=== PATIENT | male | born 1970 | race African-American/Black ===

== ENCOUNTER → 2017-10-11 | Outpatient (CLI) | payer MEDICAID | END | disposition home or self-care (01) | LOC: CVU 09:55 | PROVIDERS: ATTEND Internal Medicine Cardiovascular Disease | DX: I42.9 Cardiomyopathy, unspecified (principal); I50.9 Heart failure, unspecified; J44.9 Chronic obstructive pulmonary disease, unspecified; E66.01 Morbid (severe) obesity due to excess calories; Z95.0 Presence of cardiac pacemaker | CPT/HCPCS: 0399T; 93306 ==

== ENCOUNTER 2018-07-20 12:57 | Emergency (ER) | payer MEDICAID ==
[~2018-07-20] VITALS: Ht 180.3 cm; Wt 174.3 kg
[2018-07-20 14:39] LABS: BASOPHILS # (AUTO) 0.05 x10^3/uL (0-0.1); BASOPHILS % (AUTO) 1 % (0-1); EOSINOPHILS # (AUTO) 0.14 x10^3/uL (0-0.4); EOSINOPHILS % (AUTO) 1 % (1-7); LYMPHOCYTES # (AUTO) 2.55 x10^3/uL (1-3.4); LYMPHOCYTES % (AUTO) 24 % (22-44); MD NO; MEAN CORPUSCULAR HEMOGLOBIN 28.4 pg (27.5-34.5); MEAN CORPUSCULAR HGB CONC 32.7 g/dL (33.2-36.2); MEAN CORPUSCULAR VOLUME 86.8 fL (81-97); MEAN PLATELET VOLUME 8.3 fL (7.4-10.4); MONOCYTES # (AUTO) 0.68 x10^3/uL (0.2-0.8); MONOCYTES % (AUTO) 6 % (2-9); NEUTROPHILS # (AUTO) 7.11 x10^3/uL (1.8-6.8); NEUTROPHILS % (AUTO) 68 % (42-75); PLATELET COUNT 280 x10^3/uL (130-400); RED BLOOD COUNT 5.16 x10^6/uL (4.38-5.82); RED CELL DISTRIBUTION WIDTH 14.9 % (9.4-14.8)
[2018-07-20 14:40] LABS: ALBUMIN 3.6 g/dL (3.4-5.0); ANION GAP 3 mmol/L (5-15); CALCIUM 8.8 mg/dL (8.5-10.1); CHLORIDE 106 mmol/L (98-107)
[2018-07-20 14:46] LABS: ALANINE AMINOTRANSFERASE 34 U/L (12-78); ALKALINE PHOSPHATASE 84 U/L (45-117); BILIRUBIN,TOTAL 0.5 mg/dL (0.2-1.0); CREATININE 1.41 mg/dL (0.7-1.3); TOTAL PROTEIN 8.5 g/dL (6.4-8.2); TROPONIN I < 0.015 ng/mL (0.000-0.045)
--- NOTE | 2018-07-20 15:36 | NUR ---
TO ROOM 02
[2018-07-20 16:12] LABS: CULTURE INDICATED? YES; MICROSCOPIC INDICATED
[2018-07-20] MEDS ORDERED: SODIUM CHLORIDE 0.9% 1,000ML IVBOLUS ONE (16:30)
[2018-07-20] MEDS ORDERED: ONDANSETRON 2MG/ML, 2ML IVPush ONE (16:30)
[2018-07-20] MEDS ORDERED: SODIUM CHLORIDE FLUSH 10ML SYR IVF ONE (16:30)
[2018-07-20] MEDS ORDERED: FAMOTIDINE 20 MG/2 ML IVP ONE (16:30)
[2018-07-20] MEDS ORDERED: FAMOTIDINE 20 MG/2 ML ONE (16:32)
[2018-07-20] MEDS ORDERED: ONDANSETRON 2MG/ML, 2ML ONE (16:32)
[2018-07-20] MEDS ORDERED: FAMOTIDINE 20 MG TABLET ONE (17:31)
[2018-07-20] MEDS ORDERED: ONDANSETRON ODT 4 MG ONE ×2 (17:31→17:34)
--- NOTE | 2018-07-20 18:01 | NUR ---
UNABLE TO ESTABLISH IV ACCESS. MD AWARE. VERBAL ORDER FOR 4 MG ODT ZOFRAN AND PEPCID 20 MG PO. PO FLUIDS AFTER ODT.
[2018-07-20] MEDS ORDERED: FAMOTIDINE 20 MG TABLET PO ONE (18:30)
[2018-07-20] MEDS ORDERED: ONDANSETRON ODT 4 MG PO ONE (18:30)
--- NOTE | 2018-07-20 18:45 | NUR ---
PT TOLERATING PO FLUIDS.
--- NOTE | 2018-07-20 19:02 | NUR ---
REPORT RECEIVED FROM ANA PAULA CEBALLOS.
--- NOTE | 2018-07-20 19:08 | NUR ---
PT HANDOFF REPORT TO SHUBHAM CEBALLOS
--- NOTE | 2018-07-20 19:50 | NUR ---
NO VOMITING / DRY HEAVING NOTED.
--- NOTE | 2018-07-20 19:58 | NUR ---
EDMD AT BEDSIDE TO EXPLAIN ALL RESULTS. AWAITING DC AT THIS TIME.
--- NOTE | 2018-07-20 20:21 | NUR ---
PT AMB TO BR AND BACK TO ROOM WITH STEADY GAIT.
[2018-07-20 20:54] VITALS: BP 178/109
--- NOTE | 2018-07-20 21:02 | NUR ---
PT GIVEN DC INSTRUCTIONS AND SCRIPT. PT EDUCATED REGARDING DC MEDICATION. PT AMB TO DC WITH STEADY GAIT. PT'S AOX4. RESPS EVEN AND UNLABORED. NO ACUTE DISTRESS AT DC.
== END 2018-07-20 20:56 | disposition home or self-care (01) ==
LOC: ED 15:45
DX: R11.2 Nausea with vomiting, unspecified (principal); R10.84 Generalized abdominal pain; I10 Essential (primary) hypertension; E78.5 Hyperlipidemia, unspecified; E78.00 Pure hypercholesterolemia, unspecified
CPT/HCPCS: 36415; 71045; 74021; 80053; 81001; 83690; 84484; 85025; 87086; 93005; 99284; Q0162

== ENCOUNTER → 2019-12-04 | Outpatient (CLI) | payer MEDICAID | END | disposition home or self-care (01) | LOC: CVU 12:21 | PROVIDERS: ATTEND Internal Medicine Cardiovascular Disease | DX: I11.0 Hypertensive heart disease with heart failure (principal); I50.9 Heart failure, unspecified; J44.9 Chronic obstructive pulmonary disease, unspecified | CPT/HCPCS: 93306 ==

== ENCOUNTER 2020-03-24 08:43 | Emergency (ER) | payer MEDICAID ==
[~2020-03-24] VITALS: Ht 180.3 cm; Wt 174.4 kg
--- NOTE | 2020-03-24 09:15 | NUR ---
PT PRESENTS TO ED WITH C/O DIZZINESS, N/V ONSET LAST NIGHT. PT IS A&O, RESPS EVEN AND UNLABORED. PT HAS NO FOCAL NEURO DEFICITS. PT HAS NO DRIFT, BILATERAL GRASP EQUAL. PT ON ALL MONITORS, NSR ON LOANS CONSULTANT WITH NO ECTOPY NOTED. CALL LIGHT IN REACH. WARM BLANKET PROVIDED.
[2020-03-24 09:24] LABS: BASOPHILS % (AUTO) 1 % (0-1); EOSINOPHILS % (AUTO) 2 % (1-7); LYMPHOCYTES % (AUTO) 37 % (22-44); MEAN CORPUSCULAR HGB CONC 32.2 g/dL (33.2-36.2); MEAN PLATELET VOLUME 7.9 fL (7.4-10.4); MONOCYTES % (AUTO) 8 % (2-9); NEUTROPHILS % (AUTO) 52 % (42-75); PLATELET COUNT 277 x10^3/uL (130-400); RED BLOOD COUNT 4.79 x10^6/uL (4.38-5.82); RED CELL DISTRIBUTION WIDTH 14.1 % (9.4-14.8)
[2020-03-24 09:28] LABS: MD NO
[2020-03-24 09:29] LABS: ALANINE AMINOTRANSFERASE 25 U/L (12-78); ALBUMIN 3.6 g/dL (3.4-5.0); ANION GAP 8 mmol/L (5-15); CALCIUM 9.2 mg/dL (8.5-10.1); CHLORIDE 110 mmol/L (98-107); CREATININE 1.15 mg/dL (0.7-1.3)
[2020-03-24] MEDS ORDERED: SODIUM CHLORIDE 0.9% 1,000ML IVBOLUS ONE (09:30)
[2020-03-24] MEDS ORDERED: SODIUM CHLORIDE FLUSH 10ML SYR IVF ONE (09:30)
[2020-03-24] MEDS ORDERED: ONDANSETRON 2MG/ML, 2ML IVPush ONE (09:30)
[2020-03-24 09:32] LABS: ALKALINE PHOSPHATASE 77 U/L (45-117); BILIRUBIN,TOTAL 0.5 mg/dL (0.2-1.0); TOTAL PROTEIN 8.1 g/dL (6.4-8.2)
[2020-03-24 10:01] LABS: TROPONIN I < 0.015 ng/mL (0.000-0.045)
--- NOTE | 2020-03-24 10:22 | NUR ---
ALL RESULTS REVIEWED BY ADRI MERCADO AT BEDSIDE TO UDPATE PT WITH RESULTS AND POC.
--- NOTE | 2020-03-24 11:19 | NUR ---
this rn attempted to dc patient, PIV dc'd with tip intact. pt sat up to get dressed, states he is too dizzy to proceed. MD Jacinto notified. reassessed pt and ordered orthostatics and food tray.
--- NOTE | 2020-03-24 12:06 | NUR ---
orthostatics measured by this RN, pt is orthostatic negative. pt given meal tray, eating at this time. MD Jacinto notified, pt to be ambulated once lunch tray consumed.
[2020-03-24 13:10] VITALS: BP 129/82
--- NOTE | 2020-03-24 13:20 | NUR ---
PT GIVEN DC INSTRUCTIONS AND SCRIPT, EDUCATED REGARDING ZOFRAN SCRIPT. FSBS TAKEN PRIOR TO DEPARTURE, 125. PT ABLE TO TOLERATE FULL MEAL TRAY, WELL WATER BOTTLE AND JUICE. PT STATES DIZZINESS IMPROVED S/P FOOD. PT AMBULATORY WITH STEADY GAIT, UNASSISTED. PT WHEELED TO DC DESK VIA WC BY THIS RN. PT A&O, RESPS EVEN AND UNLABORED, NADN. NO COMPLAINT AT DC.
== END 2020-03-24 13:35 | disposition home or self-care (01) ==
LOC: ED 09:59
DX: R11.2 Nausea with vomiting, unspecified (principal); R42 Dizziness and giddiness; R55 Syncope and collapse; R07.89 Other chest pain; E11.9 Type 2 diabetes mellitus without complications; I50.9 Heart failure, unspecified; I11.0 Hypertensive heart disease with heart failure; J44.9 Chronic obstructive pulmonary disease, unspecified; E78.5 Hyperlipidemia, unspecified; Z87.891 Personal history of nicotine dependence
CPT/HCPCS: 36415; 71045; 80053; 82962; 84484; 85025; 93005; 96361; 96374; 99285; J2405; J7030